=== PATIENT | male | born 1945 | race Caucasian/White ===

== ENCOUNTER 2017-06-11 09:40 | Inpatient (IN) | payer MEDICARE, OTHER ==
[2017-06-11] MEDS ORDERED: Aspirin 81 MG Tab.Chew PO ONE (09:54)
[2017-06-11] MEDS ORDERED: Nitroglycerin 0.4 MG Tab.SL SL PRN (09:55)
[2017-06-11 10:09] LABS: CHLORIDE,CL 102 mEq/L (98-106); SODIUM,NA 138 mEq/L (136-145)
[2017-06-11] MEDS ORDERED: Non-Formulary Medication 1 Each (Hydrocodone/Acetaminophen [Hydrocodon-Acetaminophn 10-325 PO PRN (11:00)
[2017-06-11] MEDS ORDERED: THIAMINE HCL 50 MG PO PRN (11:00)
[2017-06-11] MEDS ORDERED: traMADol 50 MG Tab PO PRN (11:00)
--- NOTE | 2017-06-11 11:12 | EDM.PDOC ---
ED HPI GENERAL MEDICAL PROBLEM - General Chief Complaint: Cardiovascular Problem Stated Complaint: cp Time Seen by Provider: 06/11/17 09:53 - History of Present Illness INITIAL COMMENTS - FREE TEXT/NARRATIVE: Philipp is a 71 year old male, with PMH of atrial fibrillation, hypertension, hyperlipidemia, and AR, who presents to the ED with complaints of chest pain. He reports that for the past four days he hasn't done much other than lay on the couch. He has felt more fatigued than normal. He reports that last evening he was unable to sleep, as he was shaking so bad and felt hot. He reports that his chest has been hurting him. He has not checked his temperature at home but his friend reports he "felt hot" and was shaking. He denies any cough, shortness of breath, nasal congestion, nausea, vomiting, abdominal pain, urinary symptoms. He is a past smoker, quitting approximately 30 years ago. Onset Date: 06/08/17 Duration: Getting Worse Location: Reports: Chest Quality: Reports: Ache, Dull Improves with: Reports: Medication Worsens with: Reports: Breathing Associated Symptoms: Reports: Chest Pain, Diaphoresis, Fever/Chills, Headaches, Loss of Appetite, Weakness. 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, Other Medication(s) (Walker) Headache Pain Score (Numeric/FACES): 6 - Related Data Allergies Allergy/AdvReac Type Severity Reaction Status Date / Time Seafood Allergy Cannot Uncoded 06/11/17 10:20 Remember Home Meds: Home Meds Acetaminophen [Tylenol Extra Strength] 500 mg PO Q4H PRN 09/12/14 [History] Ascorbate Calcium/Bioflavonoid [Marjorie-C 500 MG] 1 tab PO DAILY 09/12/14 [History ] Aspirin [Halfprin] 81 mg PO DAILY 09/12/14 [History] Calcium Carb & Citrate/Vit D3 [Calcium + Vitamin D3 Caplet] 1 tab PO DAILY 09/12 [History] Cholecalciferol (Vitamin D3) [Vitamin D3] 1 - 2 tab PO DAILY 09/12/14 [History] Cyclobenzaprine HCl 10 mg PO BEDTIME 09/12/14 [History] Hydrocodone/Acetaminophen [Hydrocodon-Acetaminophn 10-325] 1 tab PO Q6H PRN 10/22 [History] Ibuprofen [Advil] 200 mg PO ASDIRECTED PRN 09/12/14 [History] Lisinopril [Zestril] 5 mg PO DAILY 09/12/14 [History] Metoprolol Succinate [Toprol XL] 50 mg PO DAILY 09/12/14 [History] Multivitamin with Minerals [Multiple Vitamin] 1 tab PO DAILY 09/12/14 [History] Omeprazole 20 mg PO DAILY 09/12/14 [History] Sulindac 150 mg PO DAILY 09/12/14 [History] Testosterone Cypionate 1 ml IM Q30D 09/12/14 [History] Thiamine HCl [Vitamin B-1] 50 mg PO DAILY PRN 09/12/14 [History] Vitamin E 400 unit PO DAILY PRN 09/12/14 [History] Warfarin [Coumadin] 5 mg PO DAILY 09/12/14 [History] Zolpidem Tartrate 10 mg PO BEDTIME PRN 09/12/14 [History] oxyCODONE ER [OxyCONTIN] 10 mg PO BID PRN 09/12/14 [History] traMADol HCl [Tramadol HCl] 50 mg PO QID PRN 09/12/14 [History] Tadalafil [Cialis] 20 mg PO DAILY PRN 06/11/17 [History] Past Medical History Cardiovascular History: Reports: Afib, High Cholesterol, Hypertension, AR Musculoskeletal History: Reports: Other (See Below) Other Musculoskeletal History: chronic LBP Other Dermatologic History: skin cancer removed from right cheek bone 3 months ago - Past Surgical History HEENT Surgical History: Reports: Tonsillectomy Other Neurological Surgeries/Procedures: epidural injections every 3 months for low back pain Other Oncologic Surgeries/Procedures: skin cancer removed from right cheek bone Social & Family History - Family History Family Medical History: Noncontributory - Tobacco Use Smoking Status *Q: Former Smoker Years of Tobacco use: 30 Packs/Tins Daily: 1 Used Tobacco, but Quit: Yes Month Tobacco Last Used: 04/1987 Second Hand Smoke Exposure: No - Caffeine Use Caffeine Use: Reports: None - Recreational Drug Use Recreational Drug Use: No ED ROS GENERAL - Review of Systems Review Of Systems: See Below Constitutional: Reports: Fever, Chills, Malaise, Weakness, Fatigue, Diaphoresis , Decreased Appetite HEENT: Reports: Rhinitis. Denies: Sinus Problem Respiratory: Reports: Pleuritic Chest Pain. Denies: Shortness of Breath, Wheezing, Cough, Sputum, Hemoptysis Cardiovascular: Reports: Chest Pain, Dyspnea on Exertion. Denies: Blood Pressure Problem, Edema, Lightheadedness, Syncope Endocrine: Reports: Fatigue GI/Abdominal: Reports: No Symptoms. Denies: Abdominal Pain, Diarrhea, Nausea, Vomiting : Reports: No Symptoms. Denies: Dysuria, Frequency, Urgency Musculoskeletal: Reports: No Symptoms Skin: Reports: Diaphoresis Neurological: Reports: Headache. Denies: Confusion, Dizziness, Numbness, Tingling Psychiatric: Reports: No Symptoms Hematologic/Lymphatic: Reports: No Symptoms Immunologic: Reports: No Symptoms ED EXAM, GENERAL - Physical Exam Exam: See Below Exam Limited By: No Limitations General Appearance: Alert, WD/WN, No Apparent Distress Eye Exam: Bilateral Eye: PERRL Nose: Normal Inspection, Normal Mucosa, No Blood Throat/Mouth: Normal Inspection, Normal Lips, Normal Teeth, Normal Gums, Normal Oropharynx, Normal Voice, No Airway Compromise Head: Atraumatic, Normocephalic Neck: Normal Inspection, Supple, Non-Tender, Full Range of Motion Respiratory/Chest: No Respiratory Distress, No Accessory Muscle Use, Chest Non- Tender, Decreased Breath Sounds, Wheezing Cardiovascular: Normal Peripheral Pulses, Irregularly Irregular GI/Abdominal: Normal Bowel Sounds, Soft, Non-Tender, No Organomegaly, No Distention, No Abnormal Bruit, No Mass Back Exam: Normal Inspection, Full Range of Motion, NT Extremities: Normal Inspection, Normal Range of Motion, Non-Tender, Normal Capillary Refill, No Pedal Edema Neurological: Alert, Oriented, CN II-XII Intact, Normal Cognition, Normal Gait, Normal Reflexes, No Motor/Sensory Deficits Psychiatric: Normal Affect, Normal Mood Skin Exam: Diaphoretic Lymphatic: No Adenopathy Course - Vital Signs Last Recorded V/S: Last Vital Signs Temp 98.5 F 06/11/17 11:29 Pulse 113 H 06/11/17 12:02 Resp 24 H 06/11/17 11:29 BP 110/71 06/11/17 12:02 Pulse Ox 94 L 06/11/17 11:29 - Orders/Labs/Meds Orders: Active Orders 24 hr Category Date Time Status Patient Status [ADT] Routine ADT 06/11/17 11:29 Active Cardiac Monitoring [RC] 0800,2000 Care 06/11/17 11:29 Active Intake and Output [RC] 0600,1800 Care 06/11/17 11:29 Active Oxygen Therapy [RC] .PRN Care 06/11/17 11:29 Active Pulse Oximetry [RC] .PRN Care 06/11/17 11:29 Active RT Aerosol Therapy [RC] 0800,1200,1600,1999 Care 06/11/17 11:29 Active Up With Assistance [RC] .PRN Care 06/11/17 11:29 Active Vital Signs [RC] 0000,0400,0800,1200,1600,1999 Care 06/11/17 11:29 Active Regular Diet [DIET] Diet 06/11/17 Lunch Active Chest 2V [CR] Routine Exams 06/11/17 Taken C-REACTIVE PROTEIN [CHEM] DAILY Lab 06/12/17 06:00 Ordered C-REACTIVE PROTEIN [CHEM] DAILY Lab 06/13/17 06:00 Ordered C-REACTIVE PROTEIN [CHEM] DAILY Lab 06/14/17 06:00 Ordered CBC WITH AUTO DIFF [HEME] DAILY Lab 06/12/17 06:00 Ordered CBC WITH AUTO DIFF [HEME] DAILY Lab 06/13/17 06:00 Ordered CBC WITH AUTO DIFF [HEME] DAILY Lab 06/14/17 06:00 Ordered CULTURE BLOOD [BC] Stat Lab 06/11/17 10:30 Received CULTURE BLOOD [BC] Stat Lab 06/11/17 10:35 Received CULTURE SPUTUM + SMEAR [RM] Stat Lab 06/11/17 11:29 Uncollected INR,PT,PROTHROMBIN TIME [COAG] DAILY Lab 06/12/17 06:00 Ordered INR,PT,PROTHROMBIN TIME [COAG] DAILY Lab 06/13/17 06:00 Ordered INR,PT,PROTHROMBIN TIME [COAG] DAILY Lab 06/14/17 06:00 Ordered Acetaminophen [Tylenol] Med 06/11/17 11:29 Active 650 mg PO Q4H PRN Albuterol/Ipratropium [DuoNeb 3.0-0.5 MG/3 ML] Med 06/11/17 12:00 Active 3 ml NEB QID Aspirin [Halfprin] Med 06/12/17 08:00 Active 81 mg PO DAILY Cyclobenzaprine [Flexeril] Med 06/11/17 20:00 Active 10 mg PO BEDTIME Hydrocodone/Acetaminophen [Hydrocodon-Acetaminophn 10- Med 06/11/17 11:00 Active 325] 1 tab PO Q6H PRN Levofloxacin/Dextrose 5%-Water [Levaquin in D5W 500 MG/ Med 06/11/17 11:29 Active 100 ML] 500 mg Premix Bag 1 bag IV Q24H Lisinopril [Prinivil] Med 06/12/17 08:00 Active 5 mg PO DAILY Magnesium Hydroxide [Milk of Magnesia] Med 06/11/17 11:29 Active 30 ml PO Q12H PRN Metoprolol Succinate [Toprol XL] Med 06/11/17 11:00 Active 50 mg PO DAILY Omeprazole [Omeprazole] Med 06/12/17 08:00 Active 20 mg PO DAILY Ondansetron [Zofran] Med 06/11/17 11:29 Active 4 mg IV Q6H PRN Sodium Chloride 0.9% [Normal Saline] 1,000 ml Med 06/11/17 11:29 Active IV ASDIRECTED Sulindac Med 06/12/17 08:00 Active 150 mg PO DAILY Temazepam [Restoril] Med 06/11/17 11:29 Active 15 mg PO BEDTIME PRN Thiamine HCl [Vitamin B-1] Med 06/11/17 11:00 Active 50 mg PO DAILY PRN Warfarin [Coumadin] Med 06/12/17 12:00 Active 5 mg PO DAILY methylPREDNISolone Sod Succ [Solu-MEDROL] Med 06/11/17 12:00 Active 62.5 mg IVPUSH Q24H oxyCODONE ER [OxyCONTIN] Med 06/11/17 11:00 Active 10 mg PO BID PRN traMADol [Ultram] Med 06/11/17 11:00 Active 50 mg PO QID PRN Anticoagulation Contraindications VTE [AST] Per Unit Oth 06/11/17 11:29 Ordered Routine Blood Culture x2 Reflex Set [OM.PC] Stat Oth 06/11/17 10:18 Ordered Resuscitation Status Routine Resus Stat 06/11/17 10:53 Ordered Medication Orders Acetaminophen (Tylenol) 650 mg PO Q4H PRN PRN Reason: Pain (Mild 1-3)/fever Albuterol/Ipratropium (Duoneb 3.0-0.5 Mg/3 Ml) 3 ml NEB QID [facility] Last Admin: 06/11/17 12:04 Dose: 3 ml Aspirin (Halfprin) 81 mg PO DAILY [facility] Cyclobenzaprine HCl (Flexeril) 10 mg PO BEDTIME [facility] Levofloxacin/Dextrose 500 mg/ (Premix) 100 mls @ 100 mls/hr IV Q24H [facility] Last Admin: 06/11/17 12:03 Dose: 100 mls/hr Sodium Chloride (Normal Saline) 1,000 mls @ 75 mls/hr IV ASDIRECTED [facility] Last Admin: 06/11/17 12:06 Dose: 75 mls/hr Lisinopril (Prinivil) 5 mg PO DAILY [facility] Magnesium Hydroxide (Milk Of Magnesia) 30 ml PO Q12H PRN PRN Reason: Constipation Methylprednisolone Sodium Succinate (Solu-Medrol) 62.5 mg IVPUSH Q24H [facility] Last Admin: 06/11/17 12:28 Dose: 62.5 mg Metoprolol Succinate (Toprol Xl) 50 mg PO DAILY [facility] Last Admin: 06/11/17 12:02 Dose: Non-Formulary Medication (Hydrocodone/Acetaminophen [Hydrocodon-Acetaminophn 10- 325]) 1 tab PO Q6H PRN PRN Reason: Pain Non-Formulary Medication (Omeprazole [Omeprazole]) 20 mg PO DAILY [facility] Non-Formulary Medication (Sulindac) 150 mg PO DAILY [facility] Non-Formulary Medication (Thiamine Hcl [Vitamin B-1]) 50 mg PO DAILY PRN PRN Reason: Supplement Ondansetron HCl (Zofran) 4 mg IV Q6H PRN PRN Reason: Nausea/Vomiting Oxycodone HCl (Oxycontin) 10 mg PO BID PRN PRN Reason: Pain Temazepam (Restoril) 15 mg PO BEDTIME PRN PRN Reason: Sleep Tramadol HCl (Ultram) 50 mg PO QID PRN PRN Reason: Pain Warfarin Sodium (Coumadin) 5 mg PO DAILY [facility] Labs: Laboratory Tests 06/11/17 06/11/17 06/11/17 Range/Units 09:50 09:50 09:50 WBC 14.6 H (5.0-10.0) 10^3/uL RBC 5.63 (4.50-6.00) 10^6/uL Hgb 17.9 (14.0-18.0) g/dL Hct 53.5 (40.0-54.0) % MCV 95.0 H (82.0-94.0) fL MCH 31.8 (27.0-32.0) pg MCHC 33.5 (33.0-38.0) g/dL RDW Coeff of Janey 13.0 (11.0-15.0) % Plt Count 145 L (150-400) 10^3/uL Neut % (Auto) 85.1 H (35-85) % Lymph % (Auto) 7.4 L (10-55) % [place] % (Auto) 7.3 (0-16) % Eos % (Auto) 0.1 (0-5) % Baso % (Auto) 0.1 (0-3) % Neut # (Auto) 12.40 H (1.80-7.00) 10^3/uL Lymph # (Auto) 1.08 (1.00-4.80) 10^3/uL [place] # (Auto) 1.07 H (0.00-0.80) 10^3/uL Eos # (Auto) 0.02 (0.00-0.45) 10^3/uL Baso # (Auto) 0.02 10^3/uL PT 30.8 H (9.7-12.3) SEC INR 2.76 H (0.92-1.18) APTT 35.8 H (24.5-30.9) SEC Sodium 138 (136-145) mEq/L Potassium 4.2 (3.5-5.0) mEq/L Chloride 102 (98-106) mEq/L Carbon Dioxide 27 (21-32) mmol/L BUN 21 H D (7-18) mg/dL Creatinine 1.3 (0.7-1.3) mg/dL Est Cr Clr Drug Dosing 51.15 mL/min Estimated GFR (MDRD) 55 L (>=60) mL/min Glucose 151 H D (75-99) mg/dL Lactic Acid (0.4-2.0) mmol/L Calcium 9.3 (8.4-10.1) mg/dL Lactate Dehydrogenase 138 (100-190) U/L Creatine Kinase 45 (35-232) U/L Troponin I < 0.017 (0.00-0.06) ng/mL C-Reactive Protein (0.2-0.8) mg/dL Urine Color (YELLOW) Urine Appearance (CLEAR) Urine pH (4.5-8.0) Ur Specific [place] (1.003-1.020) Urine Protein (NEGATIVE) mg/dL Urine Glucose (UA) (NEGATIVE) mg/dL Urine Ketones (NEGATIVE) mg/dL Urine Occult Blood (NEGATIVE) Urine Nitrite (NEGATIVE) Urine Bilirubin (NEGATIVE) Urine Urobilinogen (0.2-1.0) EU/dL Ur Leukocyte Esterase (NEGATIVE) Urine RBC (0-5) /HPF Urine WBC (0-5) /HPF Ur Squamous Epith Cells (NOT SEEN) /HPF Urine Mucus (NOT SEEN) /HPF 06/11/17 06/11/17 06/11/17 Range/Units 10:19 10:30 10:42 WBC (5.0-10.0) 10^3/uL RBC (4.50-6.00) 10^6/uL Hgb (14.0-18.0) g/dL Hct (40.0-54.0) % MCV (82.0-94.0) fL MCH (27.0-32.0) pg MCHC (33.0-38.0) g/dL RDW Coeff of Janey (11.0-15.0) % Plt Count (150-400) 10^3/uL Neut % (Auto) (35-85) % Lymph % (Auto) (10-55) % [place] % (Auto) (0-16) % Eos % (Auto) (0-5) % Baso % (Auto) (0-3) % Neut # (Auto) (1.80-7.00) 10^3/uL Lymph # (Auto) (1.00-4.80) 10^3/uL [place] # (Auto) (0.00-0.80) 10^3/uL Eos # (Auto) (0.00-0.45) 10^3/uL Baso # (Auto) 10^3/uL PT (9.7-12.3) SEC INR (0.92-1.18) APTT (24.5-30.9) SEC Sodium (136-145) mEq/L Potassium (3.5-5.0) mEq/L Chloride (98-106) mEq/L Carbon Dioxide (21-32) mmol/L BUN (7-18) mg/dL Creatinine (0.7-1.3) mg/dL Est Cr Clr Drug Dosing mL/min Estimated GFR (MDRD) (>=60) mL/min Glucose (75-99) mg/dL Lactic Acid 2.2 H (0.4-2.0) mmol/L Calcium (8.4-10.1) mg/dL Lactate Dehydrogenase (100-190) U/L Creatine Kinase (35-232) U/L Troponin I (0.00-0.06) ng/mL C-Reactive Protein 0.9 H (0.2-0.8) mg/dL Urine Color Yellow (YELLOW) Urine Appearance Clear (CLEAR) Urine pH 5.5 (4.5-8.0) Ur Specific [place] 1.020 (1.003-1.020) Urine Protein Negative (NEGATIVE) mg/dL Urine Glucose (UA) Negative (NEGATIVE) mg/dL Urine Ketones Negative (NEGATIVE) mg/dL Urine Occult Blood Trace-intact H (NEGATIVE) Urine Nitrite Negative (NEGATIVE) Urine Bilirubin Negative (NEGATIVE) Urine Urobilinogen 0.2 (0.2-1.0) EU/dL Ur Leukocyte Esterase Negative (NEGATIVE) Urine RBC 0-5 (0-5) /HPF Urine WBC 0-5 (0-5) /HPF Ur Squamous Epith Cells Occasional H (NOT SEEN) /HPF Urine Mucus Occasional H (NOT SEEN) /HPF Meds: Medications Generic Name Dose Route Start Last Admin Trade Name Freq PRN Reason Stop Dose Admin Acetaminophen 650 mg 06/11/17 11:29 Tylenol PO Q4H PRN Pain (Mild 1-3)/fever Albuterol/Ipratropium 3 ml 06/11/17 12:00 06/11/17 12:04 Duoneb 3.0-0.5 Mg/3 Ml NEB 3 ml QID [facility] Administration Aspirin 81 mg 06/12/17 08:00 Halfprin PO DAILY [facility] Cyclobenzaprine HCl 10 mg 06/11/17 20:00 Flexeril PO BEDTIME [facility] Levofloxacin/Dextrose 500 mg/ 100 mls @ 100 mls/hr 06/11/17 11:29 06/11/17 12 :03 Premix IV 100 mls/hr Q24H ONE[facility] Administration Sodium Chloride 1,000 mls @ 75 mls/hr 06/11/17 11:29 06/11/17 12:06 Normal Saline IV 75 mls/hr ASDIRECTED ONEY[facility] Administration Lisinopril 5 mg 06/12/17 08:00 Prinivil PO DAILY [facility] Magnesium Hydroxide 30 ml 06/11/17 11:29 Milk Of Magnesia PO Q12H PRN Constipation Methylprednisolone Sodium Succinate 62.5 mg 06/11/17 12:00 06/11/17 12:28 Solu-Medrol IVPUSH 62.5 mg Q24H [facility] Administration Metoprolol Succinate 50 mg 06/11/17 11:00 06/11/17 12:02 Toprol Xl PO Not Given DAILY [facility] Non-Formulary Medication 1 tab 06/11/17 11:00 Hydrocodone/Acetaminophen [Hydrocodon-Acetaminophn 10-325] PO Q6H PRN Pain Non-Formulary Medication 20 mg 06/12/17 08:00 Omeprazole [Omeprazole] PO DAILY [facility] Non-Formulary Medication 150 mg 06/12/17 08:00 Sulindac PO DAILY [facility] Non-Formulary Medication 50 mg 06/11/17 11:00 Thiamine Hcl [Vitamin B-1] PO DAILY PRN Supplement Ondansetron HCl 4 mg 06/11/17 11:29 Zofran IV Q6H PRN Nausea/Vomiting Oxycodone HCl 10 mg 06/11/17 11:00 Oxycontin PO BID PRN Pain Temazepam 15 mg 06/11/17 11:29 Restoril PO BEDTIME PRN Sleep Tramadol HCl 50 mg 06/11/17 11:00 Ultram PO QID PRN Pain Warfarin Sodium 5 mg 06/12/17 12:00 Coumadin PO DAILY [facility] Discontinued Medications Generic Name Dose Route Start Last Admin Trade Name Freq PRN Reason Stop Dose Admin Aspirin 324 mg 06/11/17 09:54 06/11/17 09:56 Aspirin PO 06/11/17 09:55 324 mg ONETIME ONE Administration Nitroglycerin 0.4 mg 06/11/17 09:55 06/11/17 09:57 Nitrostat SL 0.4 mg Q5M PRN Administration Chest Pain - Re-Assessments/Exams Free Text/Narrative Re-Assessment/Exam: Discussed lab, EKG, and CXR findings with patient and friend. WBC elevated at 14.6. Cardiac enzymes negative. Discussed case with Dr. Lopez. CXR reviewed by myself and Dr. Lopez. Will admit to hospital for pneumonia. Departure - Departure Time of Disposition: 11:04 Disposition: Admitted As Inpatient 67 Condition: Fair Clinical Impression: Pneumonia Qualifiers: Pneumonia type: due to unspecified organism Laterality: right Lung location: lower lobe of lung Qualified Code(s): J18.1 - Lobar pneumonia, unspecified organism - Problem List & Annotations (1) Pneumonia SNOMED Code(s): 310044116 Code(s): J18.9 - PNEUMONIA, UNSPECIFIED ORGANISM Status: Acute Current Visit: Yes Qualifiers: Pneumonia type: due to unspecified organism Laterality: right Lung location: lower lobe of lung Qualified Code(s): J18.1 - Lobar pneumonia, unspecified organism (2) Atrial fibrillation with RVR SNOMED Code(s): 864776676015501 Code(s): I48.91 - UNSPECIFIED ATRIAL FIBRILLATION Status: Acute Current Visit: Yes - Problem List Review Problem List Initiated/Reviewed/Updated: Yes - My Orders Last 24 Hours: My Active Orders 06/11/17 Chest 2V [CR] Routine 06/11/17 10:18 Blood Culture x2 Reflex Set [OM.PC] Stat 06/11/17 10:30 CULTURE BLOOD [BC] Stat 06/11/17 10:35 CULTURE BLOOD [BC] Stat 06/11/17 10:53 Resuscitation Status Routine 06/11/17 11:00 Hydrocodone/Acetaminophen [Hydrocodon-Acetaminophn 10-325] 1 tab PO Q6H PRN Metoprolol Succinate [Toprol XL] 50 mg PO DAILY Thiamine HCl [Vitamin B-1] 50 mg PO DAILY PRN oxyCODONE ER [OxyCONTIN] 10 mg PO BID PRN traMADol [Ultram] 50 mg PO QID PRN 06/11/17 11:29 Patient Status [ADT] Routine Cardiac Monitoring [RC] 0800,2000 Intake and Output [RC] 0600,1800 Oxygen Therapy [RC] .PRN Pulse Oximetry [RC] .PRN RT Aerosol Therapy [RC] 0800,1200,1600,2000 Up With Assistance [RC] .PRN Vital Signs [RC] 0000,0400,0800,1200,1600,2000 CULTURE SPUTUM + SMEAR [RM] Stat Acetaminophen [Tylenol] 650 mg PO Q4H PRN Levofloxacin/Dextrose 5%-Water [Levaquin in D5W 500 MG/100 ML] 500 mg Premix Bag 1 bag IV Q24H Magnesium Hydroxide [Milk of Magnesia] 30 ml PO Q12H PRN Ondansetron [Zofran] 4 mg IV Q6H PRN Sodium Chloride 0.9% [Normal Saline] 1,000 ml IV ASDIRECTED Temazepam [Restoril] 15 mg PO BEDTIME PRN Anticoagulation Contraindications VTE [AST] Per Unit Routine 06/11/17 12:00 Albuterol/Ipratropium [DuoNeb 3.0-0.5 MG/3 ML] 3 ml NEB QID methylPREDNISolone Sod Succ [Solu-MEDROL] 62.5 mg IVPUSH Q24H 06/11/17 20:00 Cyclobenzaprine [Flexeril] 10 mg PO BEDTIME 06/11/17 Lunch Regular Diet [DIET] 06/12/17 06:00 C-REACTIVE PROTEIN [CHEM] DAILY CBC WITH AUTO DIFF [HEME] DAILY INR,PT,PROTHROMBIN TIME [COAG] DAILY 06/12/17 08:00 Aspirin [Halfprin] 81 mg PO DAILY Lisinopril [Prinivil] 5 mg PO DAILY Omeprazole [Omeprazole] 20 mg PO DAILY Sulindac 150 mg PO DAILY 06/12/17 12:00 Warfarin [Coumadin] 5 mg PO DAILY 06/13/17 06:00 C-REACTIVE PROTEIN [CHEM] DAILY CBC WITH AUTO DIFF [HEME] DAILY INR,PT,PROTHROMBIN TIME [COAG] DAILY 06/14/17 06:00 C-REACTIVE PROTEIN [CHEM] DAILY CBC WITH AUTO DIFF [HEME] DAILY INR,PT,PROTHROMBIN TIME [COAG] DAILY - Assessment/Plan Admission H&P: Please use this note as an admission H&P Last 24 Hours: My Active Orders 06/11/17 Chest 2V [CR] Routine 06/11/17 10:18 Blood Culture x2 Reflex Set [OM.PC] Stat 06/11/17 10:30 CULTURE BLOOD [BC] Stat 06/11/17 10:35 CULTURE BLOOD [BC] Stat 06/11/17 10:53 Resuscitation Status Routine 06/11/17 11:00 Hydrocodone/Acetaminophen [Hydrocodon-Acetaminophn 10-325] 1 tab PO Q6H PRN Metoprolol Succinate [Toprol XL] 50 mg PO DAILY Thiamine HCl [Vitamin B-1] 50 mg PO DAILY PRN oxyCODONE ER [OxyCONTIN] 10 mg PO BID PRN traMADol [Ultram] 50 mg PO QID PRN 06/11/17 11:29 Patient Status [ADT] Routine Cardiac Monitoring [RC] 0800,2000 Intake and Output [RC] 0600,1800 Oxygen Therapy [RC] .PRN Pulse Oximetry [RC] .PRN RT Aerosol Therapy [RC] 0800,1200,1600,2000 Up With Assistance [RC] .PRN Vital Signs [RC] 0000,0400,0800,1200,1600,2000 CULTURE SPUTUM + SMEAR [] Stat Acetaminophen [Tylenol] 650 mg PO Q4H PRN Levofloxacin/Dextrose 5%-Water [Levaquin in D5W 500 MG/100 ML] 500 mg Premix Bag 1 bag IV Q24H Magnesium Hydroxide [Milk of Magnesia] 30 ml PO Q12H PRN Ondansetron [Zofran] 4 mg IV Q6H PRN Sodium Chloride 0.9% [Normal Saline] 1,000 ml IV ASDIRECTED Temazepam [Restoril] 15 mg PO BEDTIME PRN Anticoagulation Contraindications VTE [AST] Per Unit Routine 06/11/17 12:00 Albuterol/Ipratropium [DuoNeb 3.0-0.5 MG/3 ML] 3 ml NEB QID methylPREDNISolone Sod Succ [Solu-MEDROL] 62.5 mg IVPUSH Q24H 06/11/17 20:00 Cyclobenzaprine [Flexeril] 10 mg PO BEDTIME 06/11/17 Lunch Regular Diet [DIET] 06/12/17 06:00 C-REACTIVE PROTEIN [CHEM] DAILY CBC WITH AUTO DIFF [HEME] DAILY INR,PT,PROTHROMBIN TIME [COAG] DAILY 06/12/17 08:00 Aspirin [Halfprin] 81 mg PO DAILY Lisinopril [Prinivil] 5 mg PO DAILY Omeprazole [Omeprazole] 20 mg PO DAILY Sulindac 150 mg PO DAILY 06/12/17 12:00 Warfarin [Coumadin] 5 mg PO DAILY 06/13/17 06:00 C-REACTIVE PROTEIN [CHEM] DAILY CBC WITH AUTO DIFF [HEME] DAILY INR,PT,PROTHROMBIN TIME [COAG] DAILY 06/14/17 06:00 C-REACTIVE PROTEIN [CHEM] DAILY CBC WITH AUTO DIFF [HEME] DAILY INR,PT,PROTHROMBIN TIME [COAG] DAILY Plan: 06/11/[address] Lopez, inpatient with telemetry. Start IV Levaquin, IV solu-medrol , IVF, and duonebs. Patient on coumadin. Will get daily INR, as well as CBC and CRP.
[2017-06-11] MEDS ORDERED: Magnesium Hydroxide 400 MG/5 ML Susp 30 ML Cup PO PRN (11:29)
[2017-06-11] MEDS ORDERED: Acetaminophen 325 MG Tab PO PRN (11:29)
[2017-06-11] MEDS ORDERED: Temazepam 15 MG Cap PO PRN (11:29)
[2017-06-11] MEDS ORDERED: Ondansetron 4 MG/2 ML SDV IV PRN (11:29)
[2017-06-11] MEDS: Metoprolol Succinate 25 MG Tab.ER PO SCH (12:02)
[2017-06-11] MEDS: Levofloxacin/Dextrose 5%-Water 500 MG in Premix Bag 1 BAG IV SCH (12:03)
[2017-06-11] MEDS: Albuterol/Ipratropium 3.0-0.5 MG/3 ML Neb Soln NEB SCH ×3 (12:04→19:51)
[2017-06-11] MEDS: Sodium Chloride 0.9% 1,000 ML IV SCH (12:06)
[2017-06-11] MEDS: methylPREDNISolone Sodium Succinate 125 MG/2 ML SDV IVPUSH SCH (12:28)
[2017-06-11] MEDS: Cyclobenzaprine 10 MG Tab PO SCH ×2 (19:51→20:02)
[2017-06-12] MEDS: Sodium Chloride 0.9% 1,000 ML IV SCH ×2 (02:27→16:52)
[2017-06-12] MEDS: Aspirin 81 MG Tab.EC PO SCH (07:47)
[2017-06-12] MEDS: Metoprolol Succinate 25 MG Tab.ER PO SCH (07:47)
[2017-06-12] MEDS: Lisinopril 5 MG Tab PO SCH (07:47)
[2017-06-12] MEDS: Albuterol/Ipratropium 3.0-0.5 MG/3 ML Neb Soln NEB SCH ×4 (07:47→19:45)
[2017-06-12] MEDS: SULINDAC 150 MG PO SCH (09:18)
[2017-06-12] MEDS: Non-Formulary Medication 1 Each (Omeprazole [Omeprazole] 20 MG) PO SCH (09:18)
[2017-06-12] MEDS: methylPREDNISolone Sodium Succinate 125 MG/2 ML SDV IVPUSH SCH (11:09)
[2017-06-12] MEDS: Levofloxacin/Dextrose 5%-Water 500 MG in Premix Bag 1 BAG IV SCH (11:09)
[2017-06-12] MEDS ORDERED: Warfarin 5 MG Tab PO SCH (12:00)
[2017-06-12] MEDS ORDERED: LORazepam 2 MG/ML Syringe IVPUSH PRN (13:38)
[2017-06-12] MEDS: Acetaminophen/HYDROcodone 325-5 MG Tab PO PRN (17:00)
[2017-06-12] MEDS: oxyCODONE ER 10 MG TAB.ER PO PRN (17:01)
[2017-06-12] MEDS: Cyclobenzaprine 10 MG Tab PO SCH (20:52)
[2017-06-13] MEDS: Sodium Chloride 0.9% 1,000 ML IV SCH ×2 (06:07→20:38)
[2017-06-13] MEDS: Lisinopril 5 MG Tab PO SCH (07:23)
[2017-06-13] MEDS: Albuterol/Ipratropium 3.0-0.5 MG/3 ML Neb Soln NEB SCH ×4 (07:23→19:49)
[2017-06-13] MEDS: Metoprolol Succinate 25 MG Tab.ER PO SCH (07:24)
[2017-06-13] MEDS: Non-Formulary Medication 1 Each (Omeprazole [Omeprazole] 20 MG) PO SCH (08:14)
[2017-06-13] MEDS: SULINDAC 150 MG PO SCH (08:14)
[2017-06-13] MEDS: Aspirin 81 MG Tab.EC PO SCH (08:35)
[2017-06-13] MEDS: methylPREDNISolone Sodium Succinate 125 MG/2 ML SDV IVPUSH SCH (11:34)
[2017-06-13] MEDS: Levofloxacin/Dextrose 5%-Water 500 MG in Premix Bag 1 BAG IV SCH (11:35)
--- NOTE | 2017-06-13 11:59 | PCM.PN ---
- General Info Date of Service: 06/13/17 Subjective Update: Philipp is a 71 year old male who was admitted to the hospital 06/11/2017 for RLL pneumonia. He reports he is feeling better. Has been afebrile since admission. Reports he does continue coughing. Has had some wheezing. He reports he hasn't been up walking much. He reports his face is much more red than normal. He also has BUE tremors. Does report it has improved some since yesterday. Nursing staff reports he looks better today. Functional Status: Reports: Pain Controlled, Tolerating Diet, Ambulating, Urinating, New Symptoms (tremor, flushed face) - Review of Systems General: Reports: Weakness, Fatigue. Denies: Fever, Chills HEENT: Reports: Other (flushed face) Pulmonary: Reports: Cough, Wheezing. Denies: Shortness of Breath, Pleuritic Chest Pain, Sputum, Hemoptysis Cardiovascular: Reports: Dyspnea on Exertion. Denies: Chest Pain, Edema, Lightheadedness Gastrointestinal: Reports: No Symptoms Genitourinary: Reports: No Symptoms Musculoskeletal: Reports: No Symptoms Skin: Reports: Other (flushed face) Neurological: Reports: Tremors (BUE), Weakness. Denies: Confusion, Dizziness, Headache, Numbness, Syncope, Tingling, Change in Speech Psychiatric: Denies: Confusion, Anxiety, Hallucinations - Patient Data Vitals - Most Recent: Last Vital Signs Temp 97.0 F 06/13/17 08:00 Pulse 87 06/13/17 08:00 Resp 19 06/13/17 08:00 BP 123/59 L 06/13/17 08:00 Pulse Ox 94 L 06/13/17 08:00 Weight - Most Recent: 191 lb 8 oz I&O - Last 24 Hours: Intake & Output 06/12/17 06/13/17 06/13/17 22:59 06:59 14:59 Intake Total 1000 994 Balance 1000 994 Lab Results Last 24 Hours: Laboratory Results - last 24 hr 06/13/17 06/13/17 06/13/17 Range/Units 06:55 06:55 06:55 WBC 18.3 H (5.0-10.0) 10^3/uL RBC 4.79 (4.50-6.00) 10^6/uL Hgb 15.4 (14.0-18.0) g/dL Hct 46.5 (40.0-54.0) % MCV 97.1 H (82.0-94.0) fL MCH 32.2 H (27.0-32.0) pg MCHC 33.1 (33.0-38.0) g/dL RDW Coeff of Janey 13.4 (11.0-15.0) % Plt Count 147 L (150-400) 10^3/uL Neut % (Auto) 85.8 H (35-85) % Lymph % (Auto) 7.9 L (10-55) % Wagoner % (Auto) 6.1 (0-16) % Eos % (Auto) 0.1 (0-5) % Baso % (Auto) 0.1 (0-3) % Neut # (Auto) 15.73 H (1.80-7.00) 10^3/uL Lymph # (Auto) 1.44 (1.00-4.80) 10^3/uL Wagoner # (Auto) 1.12 H (0.00-0.80) 10^3/uL Eos # (Auto) 0.01 (0.00-0.45) 10^3/uL Baso # (Auto) 0.01 10^3/uL PT 30.8 H (9.7-12.3) SEC INR 2.76 H (0.92-1.18) C-Reactive Protein 1.9 H (0.2-0.8) mg/dL Carl Results Last 24 Hours: Microbiology 06/12/17 16:21 Gram Stain - Final Sputum - Expectorated Med Orders - Current: Current Medications Acetaminophen (Tylenol) 650 mg PO Q4H PRN PRN Reason: Pain (Mild 1-3)/fever Hydrocodone Bitart/Acetaminophen ([place] 325-5 Mg) 2 tab PO Q6H PRN PRN Reason: Pain Last Admin: 06/12/17 17:00 Dose: 2 tab Albuterol/Ipratropium (Duoneb 3.0-0.5 Mg/3 Ml) 3 ml NEB QID [facility] Last Admin: 06/13/17 11:34 Dose: 3 ml Aspirin (Halfprin) 81 mg PO DAILY [facility] Last Admin: 06/13/17 08:35 Dose: 81 mg Ceftriaxone Sodium (Rocephin) 1 gm IVPUSH Q24H [facility] Cyclobenzaprine HCl (Flexeril) 10 mg PO BEDTIME [facility] Last Admin: 06/12/17 20:52 Dose: Not Given Sodium Chloride (Normal Saline) 1,000 mls @ 75 mls/hr IV ASDIRECTED [facility] Last Admin: 06/13/17 06:07 Dose: 75 mls/hr Azithromycin 500 mg/ Sodium (Chloride) 250 mls @ 250 mls/hr IV Q24H [facility] Lisinopril (Prinivil) 5 mg PO DAILY [facility] Last Admin: 06/13/17 07:23 Dose: 5 mg Lorazepam (Ativan) 1 mg IVPUSH QID PRN PRN Reason: Withdrawal Symptoms Last Admin: 06/12/17 16:06 Dose: 1 mg Magnesium Hydroxide (Milk Of Magnesia) 30 ml PO Q12H PRN PRN Reason: Constipation Methylprednisolone Sodium Succinate (Solu-Medrol) 62.5 mg IVPUSH Q24H [facility] Last Admin: 06/13/17 11:34 Dose: 62.5 mg Metoprolol Succinate (Toprol Xl) 50 mg PO DAILY [facility] Last Admin: 06/13/17 07:24 Dose: 50 mg Non-Formulary Medication (Omeprazole [Omeprazole]) 20 mg PO DAILY [facility] Last Admin: 06/13/17 08:14 Dose: Not Given Non-Formulary Medication (Sulindac) 150 mg PO DAILY [facility] Last Admin: 06/13/17 08:14 Dose: Not Given Non-Formulary Medication (Thiamine Hcl [Vitamin B-1]) 50 mg PO DAILY PRN PRN Reason: Supplement Ondansetron HCl (Zofran) 4 mg IV Q6H PRN PRN Reason: Nausea/Vomiting Oxycodone HCl (Oxycontin) 10 mg PO BID PRN PRN Reason: Pain Last Admin: 06/12/17 17:01 Dose: 10 mg Temazepam (Restoril) 15 mg PO BEDTIME PRN PRN Reason: Sleep Tramadol HCl (Ultram) 50 mg PO QID PRN PRN Reason: Pain Warfarin Sodium (Coumadin) 5 mg PO DAILY [facility] Discontinued Medications Aspirin (Aspirin) 324 mg PO ONETIME ONE Stop: 06/11/17 09:55 Last Admin: 06/11/17 09:56 Dose: 324 mg Levofloxacin/Dextrose 500 mg/ (Premix) 100 mls @ 100 mls/hr IV Q24H [facility] Last Admin: 06/13/17 11:35 Dose: 100 mls/hr Nitroglycerin (Nitrostat) 0.4 mg SL Q5M PRN PRN Reason: Chest Pain Last Admin: 06/11/17 09:57 Dose: 0.4 mg Non-Formulary Medication (Hydrocodone/Acetaminophen [Hydrocodon-Acetaminophn 10- 325]) 1 tab PO Q6H PRN PRN Reason: Pain Last Admin: 06/11/17 20:03 Dose: 1 tab - Exam Quality Assessment: DVT Prophylaxis. No: Supplemental Oxygen General: Alert, Oriented Neck: Supple Lungs: Normal Respiratory Effort, Wheezing Cardiovascular: Regular Rate, Irregular Rhythm Extremities: Normal Inspection, Normal Range of Motion, Non-Tender, No Pedal Edema, Normal Capillary Refill Skin: Other (flushed face) Neurological: No New Focal Deficit Psy/Mental Status: Alert, Normal Affect, Normal Mood - Problem List & Annotations (1) Pneumonia SNOMED Code(s): 503936236 Code(s): J18.9 - PNEUMONIA, UNSPECIFIED ORGANISM Status: Acute Current Visit: Yes Qualifiers: Pneumonia type: due to unspecified organism Laterality: right Lung location: lower lobe of lung Qualified Code(s): J18.1 - Lobar pneumonia, unspecified organism (2) Atrial fibrillation with RVR SNOMED Code(s): 427258765187300 Code(s): I48.91 - UNSPECIFIED ATRIAL FIBRILLATION Status: Acute Current Visit: Yes - Problem List Review Problem List Initiated/Reviewed/Updated: Yes - My Orders Last 24 Hours: My Active Orders 06/12/17 13:38 LORazepam [Ativan] 1 mg IVPUSH QID PRN 06/12/17 16:45 Acetaminophen/HYDROcodone [[place] 325-5 MG] 2 tab PO Q6H PRN 06/13/17 12:00 Azithromycin [Zithromax] 500 mg Sodium Chloride 0.9% [Normal Saline] 250 ml IV Q24H cefTRIAXone [Rocephin] 1 gm IVPUSH Q24H - Assessment Assessment:: Pneumonia Reaction to Levaquin Afib with RVR - Plan Plan:: Patient reports he is feeling better overall. Does have flushed face and tremors do BUE. He reports he had slight tremor the day prior to coming in but this has worsened. He reports he has not drank alcohol in about 25 years. I suspect this may be a reaction to Levaquin. Will switch antibiotic to rocephin and azithromax. Sputum culture grew gram positive cocci. Awaiting sensitivities. Continue current therapy. WBC has trended up. 18.3 today. I suspect leukocytosis is secondary to steroids. CRP trending down. Follow up with lab work tomorrow morning.
[2017-06-13] MEDS ORDERED: cefTRIAXone 1 GM Vial IVPUSH SCH (12:00)
[2017-06-13] MEDS ORDERED: Azithromycin 500 MG in Sodium Chloride 0.9% 250 ML IV SCH (13:00)
[2017-06-13] MEDS: oxyCODONE ER 10 MG TAB.ER PO PRN (15:48)
[2017-06-13] MEDS: Acetaminophen/HYDROcodone 325-5 MG Tab PO PRN (15:49)
[2017-06-13] MEDS: Cyclobenzaprine 10 MG Tab PO SCH (20:38)
[2017-06-14 07:09] VITALS: BP 134/75
[2017-06-14] MEDS: Aspirin 81 MG Tab.EC PO SCH (07:26)
[2017-06-14] MEDS: Lisinopril 5 MG Tab PO SCH (07:26)
[2017-06-14] MEDS: Albuterol/Ipratropium 3.0-0.5 MG/3 ML Neb Soln NEB SCH (07:27)
[2017-06-14] MEDS: Metoprolol Succinate 25 MG Tab.ER PO SCH (07:27)
[2017-06-14] MEDS: SULINDAC 150 MG PO SCH (07:27)
[2017-06-14] MEDS: Non-Formulary Medication 1 Each (Omeprazole [Omeprazole] 20 MG) PO SCH (07:27)
[2017-06-14] MEDS ORDERED: cefTRIAXone 1 GM Vial IVPUSH SCH (08:30)
[2017-06-14] MEDS ORDERED: Azithromycin 500 MG in Sodium Chloride 0.9% 250 ML IV SCH (08:30)
[2017-06-14] MEDS ORDERED: methylPREDNISolone Sodium Succinate 125 MG/2 ML SDV IVPUSH SCH (08:30)
--- NOTE | 2017-06-14 08:34 | PN ---
DATE: 06/12/2017 S: Philipp Man is in a bronchiolitis, pneumonitis type thing. O: GENERAL: On examination, the patient is quite tremulous today, anxious. NECK: Supple. CHEST: Wheezing. CARDIAC: Sounds are good. ASSESSMENT: BRONCHIOLITIS, PNEUMONITIS, AND ATRIAL FIBRILLATION. P: Continue present therapy. JOSE/RAMIRO /[id number]
--- NOTE | 2017-06-15 07:56 | DISCH ---
HOSPITAL COURSE: Philipp Man came in hypoxic from the severe bronchiolitis, question early pneumonitis. Started IV Levaquin and had a reaction to it. Switched him to IV Zithromax and Rocephin responded nicely. At time of discharge, his chest was relatively clear. Cardiac was still irregularly irregular. Labs here in the hospital; sputum grew out a gram-positive. White count got as high as 18.3 from the steroids it is down to 15.2. C-reactive protein was got as high as 4.1 and it is now 0.6. Urinalysis looked good. DISPOSITION: The patient now discharged home. I will see him back in the clinic on Wednesday and repeat an INR. We held it over the weekend because it was elevated from the antibiotics. DISCHARGE MEDICATIONS: Home medications plus Zithromax and prednisone 20 daily. DISCHARGE DIAGNOSIS: 1. BRONCHIOLITIS, QUESTION EARLY PNEUMONITIS. 2. ATRIAL FIBRILLATION. 3. HYPERTENSION. MASON /[id number]
== END 2017-06-14 10:55 | disposition home or self-care (01) | DRG 195 ==
LOC: CC.ED 09:40 → CC.MS 11:06 → UNDOADMIN 11:06 → CC.MS 11:29
PROVIDERS: ADMIT Nurse Practitioner Family; ATTEND General Practice
DX: J18.9 Pneumonia, unspecified organism (principal); J18.0 Bronchopneumonia, unspecified organism; G25.1 Drug-induced tremor; T37.8X5A Adverse effect of other specified systemic anti-infectives and antiparasitics, initial encounter; Y92.239 Unspecified place in hospital as the place of occurrence of the external cause; I48.91 Unspecified atrial fibrillation; I10 Essential (primary) hypertension; I25.2 Old myocardial infarction; E78.5 Hyperlipidemia, unspecified; G89.29 Other chronic pain; M54.5 Low back pain; Z87.891 Personal history of nicotine dependence; Z91.013 Allergy to seafood; Z79.01 Long term (current) use of anticoagulants; Z79.82 Long term (current) use of aspirin; Z79.899 Other long term (current) drug therapy
CPT/HCPCS: 36415; 71046; 80048; 81001; 82550; 83605; 83615; 84484; 85025; 85610; 85730; 86140; 87040; 87070; 87205; 87804; 93005; 94640; 99285; A9270-GY; J0456; J0696; J1956; J2060; J2930; J7030; J7050

== ENCOUNTER → 2017-09-24 | Day surgery (SDC) | payer MEDICARE, OTHER ==
[~2017-09-24] MED LIST: Lactated Ringers 1,000 ML IV SCH; Propofol 200 MG/20 ML SDV IV ONE
[2017-09-24 10:55] VITALS: BP 120/74
--- NOTE | 2017-09-24 13:10 | OR ---
DATE OF OPERATION: 09/24/2017 PREOPERATIVE DIAGNOSIS: EPIGASTRIC PAIN. POSTOPERATIVE DIAGNOSIS: EPIGASTRIC PAIN. SURGEON: Chris Gilman MD PROCEDURE: FULL-LENGTH EGD WITH BIOPSIES X6, MARGOT. ANESTHESIA: GUEST SERVICES REPRESENTATIVE due to GERD. COMPLICATIONS: None. SPECIMEN: 1. Duodenal biopsy x1. 2. Fundal biopsy x2. 3. Antral biopsy x2. 4. Antral MARGOT. 5. Upper cardia biopsy x1. FINDINGS: 1. Full-length EGD. 2. Mild duodenitis duodenal bulb. 3. Diffuse active gastritis. 4. A small hiatal hernia with GERD. RECOMMENDATIONS: The patient will be placed on proton pump therapy and have close followup with Dr. Lopez for biopsy reports. INDICATIONS: The patient has apparently been having some postprandial dyspepsia and stomachache after eating. Dr. Lopez sent him in for EGD. DESCRIPTION OF PROCEDURE: The patient was prepped and draped, placed in left lateral decubitus position. A lubricated Olympus gastroscope was inserted over a bit advanced to cricopharyngeus area and easily intubated in the esophagus. Esophageal lining was benign for most of its course. The Z-line was crisp around 38 cm. There is a small hernia present with some spontaneous reflux and no distal esophagitis, stricturing, ulceration, or Nelson's changes. The scope was advanced into the stomach through the pylorus into the second portion of the duodenum. This was normal. The duodenal bulb showed some mildly active duodenitis. Biopsy was taken. Scope was brought back into the stomach and retroflexed, the upper fundus and cardia and the entire antrum for that matter showed acute and ongoing active gastritis, 2 biopsies of the fundus, 2 of the antrum and 1 of the upper cardia were obtained along with a MARGOT test. No gross ulcerations or damaso bleeding sites. The small hernia could be visualized from below on retroflexion. There was some thickening into the hernia sac. No signs of any significant duodenitis were seen. Air was suctioned from the stomach. The scope was removed without complication. The patient was stable in the recovery room. KARTHIKEYAN/RAMIRO /[id number]
== END ==
LOC: CC.SDS 08:38
PROVIDERS: ATTEND Family Medicine
DX: K29.50 Unspecified chronic gastritis without bleeding (principal); K29.80 Duodenitis without bleeding; B96.81 Helicobacter pylori [H. pylori] as the cause of diseases classified elsewhere; K21.9 Gastro-esophageal reflux disease without esophagitis; K44.9 Diaphragmatic hernia without obstruction or gangrene; M19.90 Unspecified osteoarthritis, unspecified site; I48.91 Unspecified atrial fibrillation; I10 Essential (primary) hypertension; K59.00 Constipation, unspecified; J21.9 Acute bronchiolitis, unspecified; E78.5 Hyperlipidemia, unspecified; E55.9 Vitamin D deficiency, unspecified; E04.1 Nontoxic single thyroid nodule; G47.00 Insomnia, unspecified; F32.9 Major depressive disorder, single episode, unspecified; Z79.01 Long term (current) use of anticoagulants; Z79.82 Long term (current) use of aspirin; Z79.899 Other long term (current) drug therapy; Z91.013 Allergy to seafood; Z87.891 Personal history of nicotine dependence
CPT/HCPCS: 00731; 36415; 85610; 87081; 88305; J2704; J7120

== ENCOUNTER 2022-08-17 20:53 | Emergency (ER) | payer MEDICARE, OTHER ==
[2022-08-17] MEDS: Morphine 4 MG/ML VIAL IVPUSH ONE (21:15)
[2022-08-17 21:44] LABS: PTT,PARTIAL THROMBOPLSTIN TIME 25.4 SEC (20.0-30.0)
[2022-08-17] MEDS: Iopamidol 755 Mg/ML 100 ML Bottle IVPUSH ONE (22:41)
[2022-08-17] MEDS: Sodium Chloride 0.9% 500 ML IV STA (23:02)
[2022-08-17] MEDS: HYDROmorphone 1 MG/ML Syringe IVPUSH ONE (23:10)
[2022-08-18] MEDS: HYDROmorphone 1 MG/ML Syringe IVPUSH ONE (01:26)
[2022-08-18] MEDS: Heparin Sodium 5,000 Units/ML Vial IVPUSH ONE (01:28)
[2022-08-18] MEDS: Heparin Sodium/0.45% NaCl 500 ML IV SCH (01:32)
[2022-08-18 02:14] VITALS: BP 129/81; PULSE 105
== END 2022-08-18 02:14 ==
LOC: CC.ED 20:53
DX: I74.3 Embolism and thrombosis of arteries of the lower extremities (principal); I48.91 Unspecified atrial fibrillation; I10 Essential (primary) hypertension; I25.2 Old myocardial infarction; Z79.01 Long term (current) use of anticoagulants; Z88.1 Allergy status to other antibiotic agents; Z91.013 Allergy to seafood; Z79.82 Long term (current) use of aspirin; Z87.891 Personal history of nicotine dependence
CPT/HCPCS: 36415; 73701-LT; 80053; 83735; 85025; 85379; 85610; 85730; 93971-LT; 96361; 96365; 96375; 96376; 99284; 99285-25; J1170; J1644; J2270; J7040; Q9967